=== PATIENT | female | born 2000 | race Caucasian/White ===

== ENCOUNTER 2021-06-08 11:30 | Outpatient (CLI) | payer OTHER ==
--- NOTE | 2021-06-08 13:01 | XRAY Report ---
PROCEDURE: Chest 2 View X-Ray INDICATIONS: POSITIVE TB TEST TECHNIQUE: 2 view(s) of the chest. COMPARISON: None. FINDINGS: Surgical changes and devices: None. Lungs and pleura: No pleural effusions or pneumothorax. Lungs are clear. Mediastinum: Mediastinal contours are normal. Heart size is normal. Bones and chest wall: No suspicious bony abnormalities. Soft tissues appear unremarkable. IMPRESSION: No acute cardiopulmonary disease. Reviewed by: Bradley Nielson MD on 06/08/2021 1:[address] [facility] Approved by: Bradley Nielson MD on 06/08/2021 1:[address] [facility] Station ID: [id number]
== END 2021-06-08 11:31 | disposition home or self-care (01) ==
LOC: DI 11:30
PROVIDERS: ATTEND Family Medicine
DX: R76.11 Nonspecific reaction to tuberculin skin test without active tuberculosis (principal)